=== PATIENT | female | born 1975 | race Caucasian/White ===

== ENCOUNTER 2020-04-06 05:42 | Inpatient (IN) | payer OTHER ==
[2020-04-06] MEDS ORDERED: Citric Acid/Sodium Citrate Solution 30 ML Cup PO ONE (05:48)
[2020-04-06] MEDS ORDERED: Sodium Chloride 0.9% 10 ML Syringe FLUSH PRN (05:48)
[2020-04-06] MEDS ORDERED: Sodium Chloride 0.9% 2.5 ML Syringe FLUSH PRN (05:48)
[2020-04-06] MEDS ORDERED: ceFAZolin 2 GM in Premix Bag 1 BAG IV ONE (05:48)
[2020-04-06] MEDS ORDERED: Sodium Chloride 0.9% 10 ML SDV IV PRN (05:48)
[2020-04-06] MEDS ORDERED: Oxytocin/0.9 % Sodium Chloride 30 UNIT/500 ML BAG IV SCH (06:00)
[2020-04-06] MEDS: Lactated Ringers 1,000 ML IV SCH ×2 (06:25→07:19)
--- NOTE | 2020-04-06 06:56 | PCM.PREANE ---
Preanesthetic Assessment - Anesthesia/Transfusion/Family Hx Anesthesia History: Prior Anesthesia Without Reaction Other Type of Anesthesia Reaction Comment: Reports gets a little anxious, no known problems in past Family History of Anesthesia Reaction: No Transfusion History: No Prior Transfusion(s) Intubation History: Unknown - Review of Systems General: No Symptoms Pulmonary: No Symptoms Cardiovascular: No Symptoms Gastrointestinal: No Symptoms Neurological: No Symptoms Other: Reports: None - Physical Assessment Height: 5 ft 5 in Weight: 116.573 kg ASA Class: 2 Mental Status: Alert & Oriented x3 Airway Class: Mallampati = 2 Dentition: Reports: Normal Dentition Thyro-Mental Finger Breadths: 3 Mouth Opening Finger Breadths: 3 ROM/Head Extension: Full Lungs: Clear to Auscultation, Normal Respiratory Effort Cardiovascular: Regular Rate, Regular Rhythm - Lab Values: Laboratory Last Values WBC 7.69 K/uL (4.0-11.0) 04/06/20 06:15 RBC 4.34 M/uL (4.30-5.90) 04/06/20 06:15 Hgb 11.9 g/dL (12.0-16.0) L 04/06/20 06:15 Hct 38.4 % (36.0-46.0) 04/06/20 06:15 MCV 88.5 fL (80.0-98.0) 04/06/20 06:15 MCH 27.4 pg (27.0-32.0) 04/06/20 06:15 MCHC 31.0 g/dL (31.0-37.0) 04/06/20 06:15 RDW Std Deviation 64.0 fl (28.0-62.0) H 04/06/20 06:15 RDW Coeff of Nando 20 % (11.0-15.0) H 04/06/20 06:15 Plt Count 262 K/uL (150-400) 04/06/20 06:15 MPV 10.10 fL (7.40-12.00) 04/06/20 06:15 Nucleated RBC % 0.0 /100WBC 04/06/20 06:15 Nucleated RBCs # 0 K/uL 04/06/20 06:15 - Allergies Allergies/Adverse Reactions: Allergies Allergy/AdvReac Type Severity Reaction Status Date / Time Sulfa (Sulfonamide Allergy Rash Verified 01/20/21 10:15 Antibiotics) sulfamethoxazole Allergy Rash Verified 04/01/20 10:15 [From Septra] trimethoprim [From Novra] Allergy Rash Verified 04/01/20 10:15 - Blood Blood Available: No - Anesthesia Plan Pre-Op Medication Ordered: None - Acknowledgements Anesthesia Type Planned: Spinal (GETA back-up plan) Pt an Appropriate Candidate for the Planned Anesthesia: Yes Alternatives and Risks of Anesthesia Discussed w Pt/Guardian: Yes Pt/Guardian Understands and Agrees with Anesthesia Plan: Yes PreAnesthesia Questionnaire HEENT History: Reports: Other (See Below) Other HEENT History: wears glasses/contacts Cardiovascular History: Reports: None Respiratory History: Reports: None Gastrointestinal History: Reports: GERD Other Gastrointestinal History: heartburn with Genitourinary History: Reports: None 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: Musculoskeletal History: Reports: Fracture Other Musculoskeletal History: fx arm as a child Neurological History: Reports: None Psychiatric History: Reports: Anxiety, Depression, Other (See Below) Other Psychiatric History: hx post depression Endocrine/Metabolic History: Reports: Obesity/BMI 30+ Hematologic History: Reports: None Immunologic History: Reports: None Oncologic (Cancer) History: Reports: None Dermatologic History: Reports: None - Past Surgical History Head Surgeries/Procedures: Reports: None HEENT Surgical History: Reports: None Cardiovascular Surgical History: Reports: None Respiratory Surgical History: Reports: None GI Surgical History: Reports: None Female Surgical History: Reports: Section (x3) Endocrine Surgical History: Reports: None Neurological Surgical History: Reports: None Musculoskeletal Surgical History: Reports: None Oncologic Surgical History: Reports: None Dermatological Surgical History: Reports: None - SUBSTANCE USE Tobacco Use Status *Q: Never Tobacco User - HOME MEDS Home Medications: Home Meds Cetirizine [ZyrTEC] 10 mg PO DAILY 08/19/14 [History] PNV95/Ferrous Fumarate/FA [ Multivitamins] 1 tab PO DAILY 08/19/14 [History] Ferrous Sulfate [Slow Fe] 1 tab PO DAILY 04/01/20 [History] Omeprazole 20 mg PO DAILY PRN 04/01/20 [History] - CURRENT (IN HOUSE) MEDS Current Meds: Current Medications Oxytocin/Sodium Chloride (Oxytocin 30 Unit/500 Ml-Ns) 30 unit in 500 mls @ 250 mls/hr IV TITRATE [facility] Lactated Ringer's (Ringers, Lactated) 1,000 mls @ 500 mls/hr IV BOLUS [facility] Last Admin: 04/06/20 06:25 Dose: 500 mls/hr Documented by: Sodium Chloride (Saline Flush) 10 ml FLUSH ASDIRECTED PRN PRN Reason: Keep Vein Open Sodium Chloride (Saline Flush) 2.5 ml FLUSH ASDIRECTED PRN PRN Reason: Keep Vein Open Sodium Chloride (Normal Saline) 10 ml IV ASDIRECTED PRN PRN Reason: IV Use Discontinued Medications Citric Acid/Sodium Citrate (Bicitra Solution) 30 ml PO ONETIME ONE Stop: 04/06/20 05:49 Cefazolin Sodium/Dextrose 2 gm (/ Premix) 50 mls @ 100 mls/hr IV ONETIME ONE Stop: 04/06/20 06:17
[2020-04-06] MEDS ORDERED: Morphine PF 10 MG/10 ML SDV ONE (07:14)
[2020-04-06] MEDS ORDERED: Phenylephrine 1% 10 MG/ML SDV ONE (07:20)
[2020-04-06] MEDS ORDERED: Oxytocin 10 Units/1 ML SDV ONE ×2 (07:20→07:29)
[2020-04-06] MEDS ORDERED: Ketorolac 30 MG/ML SDV ONE (07:26)
[2020-04-06] MEDS ORDERED: Ondansetron 4 MG/2 ML SDV ONE (07:26)
[2020-04-06] MEDS ORDERED: Octyl 2-Cyanoacrylate 1 Tube ONE (08:42)
--- NOTE | 2020-04-06 09:03 | PCM.OPNOTE ---
- General Post-Op/Procedure Note Date of Surgery/Procedure: 04/06/20 Operative Procedure(s): repeat low transverse Findings: Liveborn female 11/19 weight 3990 grams Pre Op Diagnosis: 39 weeks prior c-sections Post-Op Diagnosis: Same Anesthesia Technique: Spinal Primary Surgeon: Tessa Thomas Secondary Surgeon: Clare Ragsdale Anesthesia Provider: Evy Saavedra All Source Intelligence: Pippa Bartholomew Pathology: none Fluid Replacement, Intraop: 300 (2000 preop) EBL in mLs: 300 Complications: None Known Condition: Good
[2020-04-06] MEDS ORDERED: Ondansetron 4 MG/2 ML SDV IVPUSH PRN (09:06)
[2020-04-06] MEDS ORDERED: Tranexamic Acid 1,000 MG in Sodium Chloride 0.9% 100 ML IV PRN (09:06)
[2020-04-06] MEDS ORDERED: Misoprostol 200 MCG Tab RECTAL PRN (09:06)
[2020-04-06] MEDS ORDERED: Methylergonovine 0.2 MG/1 ML Amp IM PRN (09:06)
[2020-04-06] MEDS ORDERED: Lanolin 100% Cream 7 GM Tube TOP PRN (09:06)
[2020-04-06] MEDS ORDERED: Acetaminophen/oxyCODONE 325-5 MG Tab PO PRN (09:06)
[2020-04-06] MEDS ORDERED: Oxytocin 10 Units/1 ML SDV IM PRN (09:06)
[2020-04-06] MEDS ORDERED: Ibuprofen 800 MG Tab PO PRN (09:06)
[2020-04-06] MEDS ORDERED: Bisacodyl 10 MG Supp RECTAL PRN (09:06)
[2020-04-06] MEDS ORDERED: Lactated Ringers 1,000 ML IV SCH (09:15)
[2020-04-06] MEDS ORDERED: Oxytocin/Lactated Ringers 30 UNIT/500 ML BAG IV SCH (09:15)
[2020-04-06] MEDS ORDERED: Ketorolac 30 MG/ML SDV IVPUSH SCH ×2 (09:15→14:30)
[2020-04-06] MEDS ORDERED: Omeprazole 20 MG Cap.CR PO PRN (09:17)
--- NOTE | 2020-04-06 09:36 | PCM.POSTAN ---
POST ANESTHESIA ASSESSMENT - MENTAL STATUS Mental Status: Alert, Oriented - RESPIRATORY Respiratory Status: Respiratory Rate WNL, Airway Patent, O2 Saturation Stable - CARDIOVASCULAR CV Status: Pulse Rate WNL, Blood Pressure Stable - GASTROINTESTINAL GI Status: No Symptoms - PAIN Pain Score: 0 - POST OP HYDRATION Hydration Status: Adequate & Stable
--- NOTE | 2020-04-06 10:38 | OR ---
SURGEON: Tessa Thomas M.D. DATE OF PROCEDURE: 04/06/2020 PREOPERATIVE DIAGNOSES: 1. A 39-week intrauterine . 2. Multiple prior deliveries. 3. Active COVID disease. POSTOPERATIVE DIAGNOSES: 1. A 39-week intrauterine . 2. Multiple prior deliveries. PRIMARY SURGEON: Tessa Thomas M.D. ALUMINUM FABRICATION SUPERVISOR: Clare Ragsdale MD ANESTHESIA: Spinal. ESTIMATED BLOOD LOSS: 300 mL. FLUIDS: 300 mL intraoperative, 2000 mL preoperatively. FINDINGS: Live-born female, scores of 9 and 9, weighing 3990 g. Normal-appearing uterus, tubes, and ovaries. COMPLICATIONS: None known. DISPOSITION: Stable to Recovery. BRIEF HISTORY: This is a 44-year-old female. She presents for repeat delivery and declines a vaginal trial of labor. She overall has had uncomplicated care. She declined genetic screening, and on Monday prior to the surgery, she presented to the clinic for preoperative examination and OB visit. She felt achy, sore, fatigued, and general malaise. She thought she maybe in labor, she was not. COVID test was obtained for preoperative testing and was positive. She has been in quarantine since that time, but she presents now under appropriate COVID precautions for her with risks discussed including bleeding; infection; injury to bowel, bladder, blood vessels, ureters, or other organs; risk of thromboembolic event; and risk of anesthesia. Understanding all these risks, she does desire to proceed. DESCRIPTION OF PROCEDURE: With the patient in left tilt position, under adequate spinal analgesia, the abdomen was prepped with chlorhexidine and draped in usual fashion for abdominal surgery. SCDs were in place. Martínez catheter had been placed. Appropriate time- out was held. After documentation of adequate analgesia, the abdomen was appropriately draped, and the prior cicatrix was excised, and the incision was carried through the subcutaneous tissue to the fascia, which was scored transversely in the midline. The fascia was elevated from the underlying rectus muscle and using sharp and blunt dissection. The rectus muscles were in the midline. The peritoneum was elevated and incised. A finger was placed into the peritoneal cavity. There were no significant adhesions except for some filmy omental adhesions cephalad to the incision. The incision was extended cephalad and caudad using sharp and blunt dissection. The Ekvin O retractor was placed. The visceral peritoneum over the lower uterine segment was incised to develop an adequate bladder flap. A transverse curvilinear incision was made over the lower uterine segment, and a finger was used to enter the amniotic cavity. Clear fluid was noted. The incision was extended transversely using cephalad and caudad traction. The head was delivered via the uterine incision with fundal pressure. The 's body was delivered. Cord was wrapped around the arm. It was untangled, and the was bulb suctioned by nose and mouth. The was immediately crying and active, and after 1 minute, the cord was doubly clamped and cut. The infant was handed to the nurse in attendance of delivery. The infant was a liveborn female, scores of 9 and 9, weighing 3990 g. Cord blood was collected for cord ABGs as well as routine cord blood sampling. Pitocin was initiated after delivery of the to assist with delivery of the placenta as well as uterine contractions. The placenta was removed with manual assistance, and the uterus was cleaned with a dry laparotomy tape. The cervix was opened with ring forceps. The uterine incision was closed with a running locked suture of 0 Polysorb followed by an interrupted [id number] suture for hemostasis. Tubes and ovaries were inspected and were normal. Paracolic gutters were cleaned with a dry laparotomy tape. The uterine incision was again inspected and remained hemostatic. The Kevin O retractor was removed, and the bladder blade and Rich were utilized to perform final inspection of the incision, which was hemostatic. Therefore, the rectus muscle and peritoneum were loosely approximated in midline using a running mattress suture of 0 Polysorb. The posterior aspect of the fascia was inspected and was hemostatic. The fascial incision was closed with a running suture of 0 Polysorb. Subcutaneous tissue was irrigated. Any areas of bleeding that were noted were cauterized. The skin was closed with a running subcuticular suture of 3-0 Monocryl followed by Dermabond. Final sponge, needle, and instrument counts were reported as correct. There were no known complications. The patient was transferred to Recovery in good condition. LEX / ANIRUHD /[id number]
[2020-04-06] MEDS: diphenhydrAMINE 50 MG/ML SDV IVPUSH PRN ×2 (11:30→20:33)
[2020-04-06] MEDS: Acetaminophen/oxyCODONE 325-5 MG Tab PO PRN ×2 (18:22→23:17)
[2020-04-06] MEDS: Enoxaparin 40 MG/0.4 ML Syringe SUBCUT SCH (18:24)
[2020-04-06] MEDS: Docusate Sodium 100 MG Cap PO SCH (20:04)
[2020-04-07] MEDS: Acetaminophen/oxyCODONE 325-5 MG Tab PO PRN ×5 (04:02→20:30)
--- NOTE | 2020-04-07 06:52 | PCM.PNPP ---
- General Info Date of Service: 04/07/20 Functional Status: Reports: Pain Controlled, Tolerating Diet, Ambulating, Urinating - Review of Systems General: Reports: No Symptoms HEENT: Reports: No Symptoms Pulmonary: Reports: No Symptoms Cardiovascular: Reports: No Symptoms Gastrointestinal: Reports: No Symptoms Genitourinary: Reports: No Symptoms Musculoskeletal: Reports: No Symptoms Skin: Reports: No Symptoms Neurological: Reports: No Symptoms Psychiatric: Reports: No Symptoms - Patient Data Vital Signs - Most Recent: Last Vital Signs Temp 37.2 C 04/07/20 04:13 Pulse 95 04/07/20 04:13 Resp 18 04/07/20 04:13 BP 107/68 04/07/20 04:13 Pulse Ox 92 L 04/07/20 04:13 Weight - Most Recent: 117.934 kg I&O - Last 24 Hours: Intake & Output 04/06/20 04/06/20 04/07/20 14:59 22:59 06:59 Intake Total 300 5648 700 Output Total 1175 1325 1675 Balance -875 4323 -975 Lab Results - Last 24 Hours: Laboratory Results - last 24 hr 04/06/20 04/06/20 Range/Units 06:15 08:18 Cord ABG pH 7.485 H (7.18-7.38) Cord ABG Base Excess 0 H (-10--2) Cord VBG pH 7.389 (7.25-7.45) Cord VBG Base Excess -1 H (-10--2) Blood Type A POSITIVE Antibody Screen NEGATIVE Med Orders - Current: Current Medications Bisacodyl (Dulcolax) 10 mg RECTAL ONETIME PRN PRN Reason: Constipation Cetirizine HCl (Zyrtec) 10 mg PO DAILY [facility] Diphenhydramine HCl (Benadryl) 25 mg IVPUSH Q6H PRN PRN Reason: Itching or Nausea Last Admin: 04/06/20 20:33 Dose: 25 mg Documented by: Docusate Sodium (Colace) 100 mg PO BID [facility] Last Admin: 04/06/20 20:04 Dose: 100 mg Documented by: Emollient Ointment (Lansinoh Hpa) 0 gm TOP ASDIRECTED PRN PRN Reason: Sore Nipples Enoxaparin Sodium (Lovenox) 40 mg SUBCUT Q24H [facility] Last Admin: 04/06/20 18:24 Dose: 40 mg Documented by: Ferrous Sulfate (Ferrous Sulfate) 325 mg PO DAILY [facility] Lactated Ringer's (Ringers, Lactated) 1,000 mls @ 125 mls/hr IV ASDIRECTED GWEN Last Admin: 04/06/20 11:30 Dose: 125 mls/hr Documented by: Oxytocin/Lactated Ringer's (Pitocin In Lr 30 Units/500 Ml) 30 unit in 500 mls @ 999 mls/hr IV TITRATE [facility]; Protocol Tranexamic Acid 1,000 mg/ (Sodium Chloride) 110 mls @ 660 mls/hr IV ONETIME PRN PRN Reason: Bleeding Methylergonovine Maleate (Methergine) 0.2 mg IM ONETIME PRN PRN Reason: Excessive Vaginal Bleeding Misoprostol (Cytotec) 1,000 mcg RECTAL ONETIME PRN PRN Reason: excessive bleeding Omeprazole (Omeprazole) 20 mg PO DAILY PRN PRN Reason: Heartburn Ondansetron HCl (Zofran) 4 mg IVPUSH Q4H PRN PRN Reason: Nausea/Vomiting Oxycodone/Acetaminophen (Percocet 325-5 Mg) 1 tab PO Q4H PRN PRN Reason: Pain (moderate 4-6) Oxycodone/Acetaminophen (Percocet 325-5 Mg) 2 tab PO Q4H PRN PRN Reason: Pain (moderate 4-6) Last Admin: 04/07/20 04:02 Dose: 2 tab Documented by: Oxytocin (Pitocin) 10 unit IM ASDIRECTED PRN PRN Reason: Excessive Vaginal Bleeding Prenat Multivit/[place]/Iron/Folic Ac ( Mtr) 1 each PO DAILY [facility] Discontinued Medications Citric Acid/Sodium Citrate (Bicitra Solution) 30 ml PO ONETIME ONE Stop: 04/06/20 05:49 Last Admin: 04/06/20 07:34 Dose: Not Given Documented by: Oxytocin/Sodium Chloride (Oxytocin 30 Unit/500 Ml-Ns) 30 unit in 500 mls @ 250 mls/hr IV TITRATE [facility] Cefazolin Sodium/Dextrose 2 gm (/ Premix) 50 mls @ 100 mls/hr IV ONETIME ONE Stop: 04/06/20 06:17 Lactated Ringer's (Ringers, Lactated) 1,000 mls @ 500 mls/hr IV BOLUS [facility] Last Admin: 04/06/20 07:19 Dose: 999 mls/hr Documented by: Cefazolin Sodium/Dextrose (Ancef 2 Gm/50 Ml) Confirm Administered Dose 50 mls @ as directed .ROUTE .[facility] ONE Stop: 04/06/20 08:38 Ibuprofen (Motrin) 800 mg PO Q8H PRN PRN Reason: mild pain or fever Ibuprofen (Motrin) 800 mg PO Q8H PRN PRN Reason: mild pain or fever Ketorolac Tromethamine (Toradol) Confirm Administered Dose 30 mg .ROUTE .ST-MED ONE Stop: 04/06/20 07:27 Ketorolac Tromethamine (Toradol) 30 mg IVPUSH Q6H [facility] Stop: 04/07/20 09:16 Ketorolac Tromethamine (Toradol) 30 mg IVPUSH Q6H [facility] Stop: 04/07/20 08:31 Last Admin: 04/06/20 14:22 Dose: 30 mg Documented by: Morphine Sulfate (Duramorph Pf) Confirm Administered Dose 10 mg .ROUTE .ST-MED ONE Stop: 04/06/20 07:15 Octyl Cyanoacrylate (Dermabond Advance) Confirm Administered Dose 1 applic .ROUTE .[facility] ONE Stop: 04/06/20 08:43 Ondansetron HCl (Zofran) Confirm Administered Dose 4 mg .ROUTE .ST-MED ONE Stop: 04/06/20 07:27 Oxytocin (Pitocin) Confirm Administered Dose 30 unit .ROUTE .[facility]-MED ONE Stop: 04/06/20 07:21 Oxytocin (Pitocin) Confirm Administered Dose 10 unit .ROUTE .ST-MED ONE Stop: 04/06/20 07:30 Phenylephrine HCl (Carlos-Synephrine) Confirm Administered Dose 10 mg .ROUTE .ST- MED ONE Stop: 04/06/20 07:21 Sodium Chloride (Saline Flush) 10 ml FLUSH ASDIRECTED PRN PRN Reason: Keep Vein Open Sodium Chloride (Saline Flush) 2.5 ml FLUSH ASDIRECTED PRN PRN Reason: Keep Vein Open Sodium Chloride (Normal Saline) 10 ml IV ASDIRECTED PRN PRN Reason: IV Use - Interaction Infant Disposition, : [place] in Room with Family Infant Interaction: Holding Feeding: Breastfed Infant; Nursed Well Support Person: - Recovery Exam Fundal Tone: Firm Fundal Level: 2 Fingerbreadths Below Umbilicus Fundal Placement: Midline Lochia Amount: Scant Lochia Color: Rubra/Red Perineum Description: Intact, Minimal Bruising/Swelling Episiotomy/Laceration: None Bladder Status: Indwelling Catheter in Place Urinary Elimination: Indwelling Catheter - Exam General: Alert, Oriented HEENT: Pupils Equal Neck: Supple Lungs: Clear to Auscultation, Normal Respiratory Effort Cardiovascular: Regular Rate, Regular Rhythm GI/Abdominal Exam: Normal Bowel Sounds, Soft, Non-Tender Extremities: Normal Inspection, No Pedal Edema Skin: Warm Psy/Mental Status: Alert, Normal Affect, Normal Mood - Problem List & Annotations (1) COVID-19 affecting puerperium SNOMED Code(s): 513169221, 976145317 Code(s): O98.53 - OTHER VIRAL DISEASES COMPLICATING THE PUERPERIUM; U07.1 - COVID-19 Status: Acute Current Visit: Yes (2) Previous delivery, delivered SNOMED Code(s): 197630878, 619104090 Code(s): O34.21 - MATERNAL CARE FOR SCAR FROM PREVIOUS * DO NOT USE * Status: Acute Current Visit: No - Problem List Review Problem List Initiated/Reviewed/Updated: Yes - My Orders Last 24 Hours: My Active Orders 04/06/20 06:15 RPR (SYPHILIS SERO) W/ RFLX [REF] Routine 04/06/20 09:06 Patient Status [ADT] Routine Ambulate [RC] PER UNIT ROUTINE Antiembolic Devices [RC] PER UNIT ROUTINE Communication Order [RC] PER UNIT ROUTINE Communication Order [RC] PER UNIT ROUTINE Communication Order [RC] Per Unit Routine Intake and Output [RC] Q8H May Shower [RC] ASDIRECTED RT Incentive Spirometry [RC] Q2HWA Vital Signs [RC] PER UNIT ROUTINE Acetaminophen/oxyCODONE [Percocet 325-5 MG] 1 tab PO Q4H PRN Acetaminophen/oxyCODONE [Percocet 325-5 MG] 2 tab PO Q4H PRN Lanolin [Lansinoh HPA] See Dose Instructions TOP ASDIRECTED PRN Methylergonovine [Methergine] 0.2 mg IM ONETIME PRN Ondansetron [Zofran] 4 mg IVPUSH Q4H PRN Oxytocin [Pitocin] 10 unit IM ASDIRECTED PRN Tranexamic Acid [Cyklokapron] 1,000 mg Sodium Chloride 0.9% [Normal Saline] 100 ml IV ONETIME bisacodyL [Dulcolax] 10 mg RECTAL ONETIME PRN diphenhydrAMINE [Benadryl] 25 mg IVPUSH Q6H PRN miSOPROStoL [Cytotec] 1,000 mcg RECTAL ONETIME PRN Abdominal Binder [OM.PC] Urgent Assess Lochia [WOMSER] Per Unit Routine Assess Uterine Involution [WOMSER] Per Unit Routine Breast Pump [WOMSER] Per Unit Routine Peripheral IV Discontinue [OM.PC] Routine Sequential Compression Device [OM.PC] Per Unit Routine Resuscitation Status Routine 04/06/20 09:07 Notify Provider Intake and Out [RC] ASDIRECTED Notify Provider Vital Signs [RC] ASDIRECTED 04/06/20 09:15 Lactated Ringers [Ringers, Lactated] 1,000 ml IV ASDIRECTED Oxytocin/Lactated Ringers [Pitocin in LR 30 Units/500 ML] 30 unit in 500 ml IV TITRATE 04/06/20 09:17 Omeprazole 20 mg PO DAILY PRN 04/06/20 Lunch Regular Diet [DIET] 04/06/20 Dinner Guest Tray [DIET] 04/06/20 17:30 Enoxaparin [Lovenox] 40 mg SUBCUT Q24H 04/06/20 21:00 Docusate Sodium [Colace] 100 mg PO BID 04/07/20 05:11 HEMOGLOBIN/HEMATOCRIT,HH [HEME] Routine 04/07/20 09:00 Cetirizine [ZyrTEC] 10 mg PO DAILY Ferrous Sulfate 325 mg PO DAILY Vit/FA/Fe Fumarate/Se [ MTR] 1 each PO DAILY - Assessment Assessment:: POD#1 after repeat low transverse , symptomatic COVID, normal oxygen saturations. Stable - Plan Plan:: Continue postop care, continue Lovenox due to and COVID. Anticipate discharge tomorrow.
--- NOTE | 2020-04-07 07:47 | PCM48HPAN ---
Post Anesthesia Note - EVALUATION WITHIN 48HRS OF ANESTHETIC Vital Signs in Normal Range: Yes Patient Participated in Evaluation: Yes Respiratory Function Stable: Yes Airway Patent: Yes Cardiovascular Function Stable: Yes Hydration Status Stable: Yes Pain Control Satisfactory: Yes Nausea and Vomiting Control Satisfactory: Yes Mental Status Recovered: Yes Vital Signs: Last Vital Signs Temp 37.2 C 04/07/20 04:13 Pulse 95 04/07/20 04:13 Resp 18 04/07/20 04:13 BP 107/68 04/07/20 04:13 Pulse Ox 92 L 04/07/20 04:13
[2020-04-07] MEDS: Docusate Sodium 100 MG Cap PO SCH ×2 (08:16→20:30)
[2020-04-07] MEDS: Ferrous Sulfate 325 MG Tab PO SCH (08:16)
[2020-04-07] MEDS: Prenatal Multivitamin and Multimineral with Iron Tab PO SCH (08:16)
[2020-04-07] MEDS ORDERED: Cetirizine 10 MG Tab PO SCH (09:00)
[2020-04-07] MEDS ORDERED: Ibuprofen 800 MG Tab PO PRN (15:00)
[2020-04-07] MEDS: Enoxaparin 40 MG/0.4 ML Syringe SUBCUT SCH (18:04)
[2020-04-07] MEDS: Simethicone 80 MG Tab.Chew PO PRN (20:30)
[2020-04-08] MEDS: Simethicone 80 MG Tab.Chew PO PRN ×2 (00:51→08:58)
[2020-04-08] MEDS: Acetaminophen/oxyCODONE 325-5 MG Tab PO PRN ×3 (00:52→08:57)
[2020-04-08 05:09] VITALS: BP 152/67; PULSE 92
--- NOTE | 2020-04-08 08:36 | PCM.PNPP ---
- General Info Date of Service: 04/08/20 Functional Status: Reports: Tolerating Diet, Urinating. Denies: Pain Controlled (can't have NSAID due to Lovenox. she is using Percocet regularly), Ambulating - Review of Systems General: Reports: No Symptoms HEENT: Reports: No Symptoms Pulmonary: Reports: No Symptoms Cardiovascular: Reports: No Symptoms Gastrointestinal: Reports: No Symptoms Genitourinary: Reports: No Symptoms Musculoskeletal: Reports: No Symptoms Skin: Reports: No Symptoms Neurological: Reports: No Symptoms Psychiatric: Reports: No Symptoms - Patient Data Vital Signs - Most Recent: Last Vital Signs Temp 36.4 C 04/07/20 19:30 Pulse 92 04/08/20 05:08 Resp 15 04/08/20 05:08 BP 152/67 H 04/08/20 05:08 Pulse Ox 98 04/08/20 05:08 Weight - Most Recent: 117.934 kg Med Orders - Current: Current Medications Bisacodyl (Dulcolax) 10 mg RECTAL ONETIME PRN PRN Reason: Constipation Cetirizine HCl (Zyrtec) 10 mg PO DAILY [facility] Last Admin: 04/07/20 09:44 Dose: 10 mg Documented by: Diphenhydramine HCl (Benadryl) 25 mg IVPUSH Q6H PRN PRN Reason: Itching or Nausea Last Admin: 04/06/20 20:33 Dose: 25 mg Documented by: Docusate Sodium (Colace) 100 mg PO BID [facility] Last Admin: 04/07/20 20:30 Dose: 100 mg Documented by: Emollient Ointment (Lansinoh Hpa) 0 gm TOP ASDIRECTED PRN PRN Reason: Sore Nipples Enoxaparin Sodium (Lovenox) 40 mg SUBCUT Q24H [facility] Last Admin: 04/07/20 18:04 Dose: 40 mg Documented by: Ferrous Sulfate (Ferrous Sulfate) 325 mg PO DAILY [facility] Last Admin: 04/07/20 08:16 Dose: 325 mg Documented by: Lactated Ringer's (Ringers, Lactated) 1,000 mls @ 125 mls/hr IV ASDIRECTED [facility] Last Admin: 04/06/20 11:30 Dose: 125 mls/hr Documented by: Oxytocin/Lactated Ringer's (Pitocin In Lr 30 Units/500 Ml) 30 unit in 500 mls @ 999 mls/hr IV TITRATE [facility]; Protocol Tranexamic Acid 1,000 mg/ (Sodium Chloride) 110 mls @ 660 mls/hr IV ONETIME PRN PRN Reason: Bleeding Methylergonovine Maleate (Methergine) 0.2 mg IM ONETIME PRN PRN Reason: Excessive Vaginal Bleeding Misoprostol (Cytotec) 1,000 mcg RECTAL ONETIME PRN PRN Reason: excessive bleeding Omeprazole (Omeprazole) 20 mg PO DAILY PRN PRN Reason: Heartburn Ondansetron HCl (Zofran) 4 mg IVPUSH Q4H PRN PRN Reason: Nausea/Vomiting Oxycodone/Acetaminophen (Percocet 325-5 Mg) 1 tab PO Q4H PRN PRN Reason: Pain (moderate 4-6) Oxycodone/Acetaminophen (Percocet 325-5 Mg) 2 tab PO Q4H PRN PRN Reason: Pain (moderate 4-6) Last Admin: 04/08/20 04:51 Dose: 2 tab Documented by: Oxytocin (Pitocin) 10 unit IM ASDIRECTED PRN PRN Reason: Excessive Vaginal Bleeding Prenat Multivit/[place]/Iron/Folic Ac ( Mtr) 1 each PO DAILY [facility] Last Admin: 04/07/20 08:16 Dose: 1 each Documented by: Simethicone (Simethicone) 80 mg PO Q4H PRN PRN Reason: Gas Last Admin: 04/08/20 00:51 Dose: 80 mg Documented by: Discontinued Medications Citric Acid/Sodium Citrate (Bicitra Solution) 30 ml PO ONETIME ONE Stop: 04/06/20 05:49 Last Admin: 04/06/20 07:34 Dose: Not Given Documented by: Oxytocin/Sodium Chloride (Oxytocin 30 Unit/500 Ml-Ns) 30 unit in 500 mls @ 250 mls/hr IV TITRATE [facility] Cefazolin Sodium/Dextrose 2 gm (/ Premix) 50 mls @ 100 mls/hr IV ONETIME ONE Stop: 04/06/20 06:17 Lactated Ringer's (Ringers, Lactated) 1,000 mls @ 500 mls/hr IV BOLUS [facility] Last Admin: 04/06/20 07:19 Dose: 999 mls/hr Documented by: Cefazolin Sodium/Dextrose (Ancef 2 Gm/50 Ml) Confirm Administered Dose 50 mls @ as directed .ROUTE .STK-MED ONE Stop: 04/06/20 08:38 Ibuprofen (Motrin) 800 mg PO Q8H PRN PRN Reason: mild pain or fever Ibuprofen (Motrin) 800 mg PO Q8H PRN PRN Reason: mild pain or fever Ketorolac Tromethamine (Toradol) Confirm Administered Dose 30 mg .ROUTE .STK-MED ONE Stop: 04/06/20 07:27 Ketorolac Tromethamine (Toradol) 30 mg IVPUSH Q6H [facility] Stop: 04/07/20 09:16 Ketorolac Tromethamine (Toradol) 30 mg IVPUSH Q6H [facility] Stop: 04/07/20 08:31 Last Admin: 04/06/20 14:22 Dose: 30 mg Documented by: Morphine Sulfate (Duramorph Pf) Confirm Administered Dose 10 mg .ROUTE .ST-MED ONE Stop: 04/06/20 07:15 Octyl Cyanoacrylate (Dermabond Advance) Confirm Administered Dose 1 applic .ROUTE .ST-MED ONE Stop: 04/06/20 08:43 Ondansetron HCl (Zofran) Confirm Administered Dose 4 mg .ROUTE .STK-MED ONE Stop: 04/06/20 07:27 Oxytocin (Pitocin) Confirm Administered Dose 30 unit .ROUTE .STK-MED ONE Stop: 04/06/20 07:21 Oxytocin (Pitocin) Confirm Administered Dose 10 unit .ROUTE .STK-MED ONE Stop: 04/06/20 07:30 Phenylephrine HCl (Carlos-Synephrine) Confirm Administered Dose 10 mg .ROUTE .ST- MED ONE Stop: 04/06/20 07:21 Sodium Chloride (Saline Flush) 10 ml FLUSH ASDIRECTED PRN PRN Reason: Keep Vein Open Sodium Chloride (Saline Flush) 2.5 ml FLUSH ASDIRECTED PRN PRN Reason: Keep Vein Open Sodium Chloride (Normal Saline) 10 ml IV ASDIRECTED PRN PRN Reason: IV Use - Interaction Infant Disposition, : [place] in Room with Family Infant Interaction: Holding Infant Feeding: Breastfed Infant; Nursed Well Support Person: - Recovery Exam Fundal Tone: Firm Fundal Level: 2 Fingerbreadths Below Umbilicus Fundal Placement: Midline Lochia Amount: Scant Lochia Color: Rubra/Red Perineum Description: Intact, Minimal Bruising/Swelling Episiotomy/Laceration: None Bladder Status: Voiding Urinary Elimination: Voided - Exam General: Alert, Oriented Neck: Supple Lungs: Clear to Auscultation, Normal Respiratory Effort Cardiovascular: Regular Rate, Regular Rhythm GI/Abdominal Exam: Normal Bowel Sounds, Soft, Non-Tender Extremities: Normal Inspection, Normal Range of Motion, Non-Tender. No: No Pedal Edema (trace) Skin: Warm, Dry, Intact Wound/Incisions: Healing Well Neurological: No New Focal Deficit Psy/Mental Status: Alert, Normal Affect, Normal Mood - Problem List & Annotations (1) COVID-19 affecting puerperium SNOMED Code(s): 302173641, 167483877 Code(s): O98.53 - OTHER VIRAL DISEASES COMPLICATING THE PUERPERIUM; U07.1 - COVID-19 Status: Acute Current Visit: Yes (2) Previous delivery, delivered SNOMED Code(s): 066998355, 315092627 Code(s): O34.21 - MATERNAL CARE FOR SCAR FROM PREVIOUS * DO NOT USE * Status: Acute Current Visit: No - Problem List Review Problem List Initiated/Reviewed/Updated: Yes - My Orders Last 24 Hours: My Active Orders 04/07/20 09:00 Cetirizine [ZyrTEC] 10 mg PO DAILY Ferrous Sulfate 325 mg PO DAILY Vit/FA/Fe Fumarate/Se [ MTR] 1 each PO DAILY - Assessment Assessment:: POD#2 after repeat low transverse , symptomatic COVID, normal oxygen saturations. Last 2 BP readings elevated, may be due to pain, but will monitor, and hold discharge at least until this evening Has not yet been up out of been much, no shower yet. - Plan Plan:: Discussed with nurse and patient, need to get shower today, ambulating in room, work on pain control, but getting out of bed may be helpful. Consider discharge this evening if pain control is improved and BP stable.
[2020-04-08] MEDS: Docusate Sodium 100 MG Cap PO SCH (08:58)
[2020-04-08] MEDS: Ferrous Sulfate 325 MG Tab PO SCH (08:58)
[2020-04-08] MEDS: Prenatal Multivitamin and Multimineral with Iron Tab PO SCH (08:58)
== END 2020-04-08 18:45 | disposition home or self-care (01) | DRG 786 ==
LOC: MW.OB 05:42
PROVIDERS: ADMIT Obstetrics & Gynecology; ATTEND Obstetrics & Gynecology
PROC: 10D00Z1 Extraction of Products of Conception, Low, Open Approach (ICD-10-PCS; principal; 2020-04-06)
DX: O34.211 Maternal care for low transverse scar from previous cesarean delivery (principal); U07.1 COVID-19; O98.52 Other viral diseases complicating childbirth; Z3A.39 39 weeks gestation of pregnancy; Z37.0 Single live birth
CPT/HCPCS: 01961; 36415; 59025; 82803; 85014; 85018; 85027; 86592; 86850; 86900; 86901; A9270-GY; J0690; J1200; J1650; J1885; J2270; J2370; J2405; J2590; J7120

== ENCOUNTER 2020-10-09 15:36 | Emergency (ER) | payer OTHER ==
[2020-10-09] MEDS ORDERED: Sodium Chloride 0.9% 2.5 ML Syringe FLUSH PRN (16:25)
[2020-10-09] MEDS ORDERED: Sodium Chloride 0.9% 1,000 ML IV ONE (16:25)
[2020-10-09] MEDS ORDERED: Sodium Chloride 0.9% 10 ML Syringe FLUSH PRN (16:25)
[2020-10-09] MEDS ORDERED: Ondansetron 4 MG/2 ML SDV IVPUSH ONE (16:25)
[2020-10-09 17:10] LABS: BLOOD UREA NITROGEN,BUN 13 mg/dL (7.0-18.0); CARBON DIOXIDE,CO2 25.8 mmol/L (21.0-32.0); CHLORIDE,CL 102 mmol/L (98-107); GLUCOSE RANDOM 106 mg/dL (74-106); LIPASE 783 U/L (73-393); POTASSIUM,K 3.8 mmol/L (3.5-5.1); SODIUM,NA 137 mmol/L (136-145)
--- NOTE | 2020-10-09 17:49 | US ---
INDICATION: Right upper quadrant pain, leukocytosis TECHNIQUE: Ultrasound abdomen limited. Sonographic images of the right upper quadrant were obtained using corado-scale and color Doppler images. COMPARISON: December 06, 2011 FINDINGS: Liver: The liver measures 21.2 cm in length. There is increased echogenicity throughout the liver. No masses. No intrahepatic biliary dilatation. Gallbladder: Multiple mobile gallstones. Sonographic Link`s sign is negative. Normal wall thickness. No pericholecystic fluid. Common bile duct: 4 mm. Pancreas: Normal. Right kidney: 11.4 cm. Normal echotexture and cortex. No masses, stones, or hydronephrosis. Vasculature: Proximal abdominal aorta and IVC are normal. IMPRESSION: Cholelithiasis without evidence for cholecystitis. Hepatomegaly with hepatic steatosis. Dictated by Wendy Constantino MD @ 10/09/2020 5:48:[address] Wendy Constantino @ Oct 09 2020 5:48PM
[2020-10-09] MEDS ORDERED: Iopamidol 755 MG/ML 500 ML Multipack Bottle IVPUSH STA (18:35)
[2020-10-09 19:08] VITALS: BP 119/68; PULSE 65
--- NOTE | 2020-10-09 19:13 | CT ---
HISTORY: Right-sided pain. TECHNIQUE: Intravenous contrast enhanced CT of the abdomen and pelvis. 100 mL of Isovue-370 intravenous contrast administered. COMPARISON: Ultrasound 10/09/2020. FINDINGS: There is diffuse fatty infiltration of the liver with sparing adjacent to gallbladder fossa. No biliary ductal dilatation. Gallbladder does not appear excessively distended. The spleen and adrenal glands are normal. No focal pancreatic abnormality. Symmetric nephrograms. No renal mass or hydronephrosis. No obstructive calculus. Urinary bladder is mildly distended. - No small bowel obstruction. No appendicitis. No acute diverticulitis. No fluid collection or free air. - No abdominal aortic aneurysm. - A small area of subpleural opacity within the left lower lobe posteriorly likely relates to atelectasis. - No acute fractures. IMPRESSION: 1. No specific identified cause of the patient`s right-sided pain. 2. Fatty infiltration of the liver. 3. No appendicitis, diverticulitis or bowel obstruction. Please note that all CT scans at this facility use dose modulation, iterative reconstruction, and/or weight-based dosing when appropriate to reduce radiation dose to as low as reasonably achievable. Dictated by Eros Payne MD @ 10/09/2020 7:12:[address] Eros Payne @ Oct 09 2020 7:12PM
--- NOTE | 2020-10-09 19:33 | EDM.PDOC ---
ED HPI GENERAL MEDICAL PROBLEM - General Chief Complaint: Abdominal Pain Stated Complaint: LABS/STOMACH PAIN Time Seen by Provider: 10/09/20 15:36 Source of Information: Reports: Patient History Limitations: Reports: No Limitations - History of Present Illness INITIAL COMMENTS - FREE TEXT/NARRATIVE: HISTORY AND PHYSICAL: History of present illness: Patient is a 44-year-old female who resents emergency room today with concern of upper abdominal pain and nausea x2 to 3 days. Patient states that she came here because she was sent from the clinic and states that she would not have otherwise come here today. Patient states that 3 days ago she began having upper abdominal pain and states that it was more severe 3 days ago than it is today but states that she has residual nausea and a "blah "feeling. Patient states she is also had a decrease in appetite and has not wanted to eat or drink a whole lot. Patient states that she is currently breast-feeding and is 6 months and has a history of tubal ligation a few months ago. Patient states that she went to the clinic today and they did some lab work and told her she needed to come to the emergency room as her white blood cell count was elevated and her liver functions were elevated and they were concerned about her gallbladder. Patient denies any other health history or any other symptoms or concerns. Patient denies fever, chills, chest pain, shortness of breath, or cough. Denies headache, neck stiff ness, change in vision, syncope, or near syncope. Denies vomiting, diarrhea, constipation, or dysuria. Has not noted any blood in urine or stool. Review of systems: As per history of present illness and below otherwise all systems reviewed and negative. Past medical history: As per history of present illness and as reviewed below otherwise noncontributory. Surgical history: As per history of present illness and as reviewed below otherwise noncontributory. Social history: See social history for further information Family history: As per history of present illness and as reviewed below otherwise noncontributory. Physical exam: General: Patient is alert, oriented, and in no acute distress. Patient laying comfortably on exam table. Vitals stable and reviewed by me. HEENT: Atraumatic, normocephalic, pupils equal and reactive bilaterally, negative for conjunctival pallor or scleral icterus, mucous membranes moist, TMs normal bilaterally, throat clear, neck supple, nontender, trachea midline. No drooling or trismus noted. No meningeal signs. No hot potato voice noted. Lungs: Clear to auscultation, breath sounds equal bilaterally, chest nontender. Heart: S1S2, regular rate and rhythm without overt murmur Abdomen: Soft, nondistended, mild upper abdominal tenderness without guarding, negative rebound, negative Link. Negative for masses or hepatosplenomegaly. Negative for costovertebral tenderness. Pelvis: Stable nontender. Genitourinary: Deferred. Rectal: Deferred. Skin: Intact, warm, dry. No lesions or rashes noted. Extremities: Atraumatic, negative for cords or calf pain. Neurovascular unremarkable. Neuro: Awake, alert, oriented. Cranial nerves II through XII unremarkable. Cerebellum unremarkable. Motor and sensory unremarkable throughout. Exam nonfocal. Notes: Patient is a 44-year-old female who presents to the ED today with concern of 3- day history of abdominal pain and nausea and sent to the emergency room from her primary care provider for concern of leukocytosis and transaminitis in the setting of upper abdominal pain. Upon arrival to the ED, patient is vitally stable and well-appearing on exam. Patient does have some mild right upper and left upper abdominal tenderness without guarding and negative Link sign. Patient does state that her abdominal pain is improved over the past 3 days but she continues to have some nausea and decreased appetite. At this time, I do not have access to patient's lab work done in the clinic so we will repeat lab work with anticipation to obtain a right upper quadrant ultrasound and abdominal pelvic CT scan. Mild derangements of CBC are unremarkable with a within normal limits white blood cell count at 10.74. CMP does show an AST elevation of 165, ALT elevation of 835, alk phos elevation at 187. Bilirubin is within normal limits. Lipase is mildly elevated at 783. hCG is negative. Urinalysis is clear. Abdominal pelvic CT scan shows no specific identified cause for patient's abdominal pain. Fatty infiltration of the liver. No appendicitis, diverticulitis, or bowel obstruction. Right upper quadrant ultrasound shows cholelithiasis without evidence for cholecystitis. Hepatomegaly with hepatic steatosis. Common bile duct within normal limits. I did call and speak to the general surgeon on-call, Dr. Levin, and thoroughly discussed patient's case. He feels that patient's lab work likely reflects that she has passed a stone that was obstructed for a period of time causing some mild pancreatitis/inflammation in the transient elevation of her liver function testing. Given that bilirubin is within normal limits, he feels that if patient's pain is well controlled, she is stable for discharge to home with close follow-up with general surgery and her primary care provider for repeat lab work trending her LFTs to normal. Upon reevaluation of patient, she remains vitally stable and comfortable throughout stay in ED. Admission for observation was offered to patient but she declines at this time. Strict return precautions thoroughly discussed with patient. All signs and symptoms that were prompt return to the ED thoroughly discussed with patient. Discussed importance for follow-up with a primary care provider as well as general surgery. Voices understanding and is agreeable to plan of care. Denies any further questions or concerns at this time. Diagnostics: CBC, CMP, UA, lipase, abdominal pelvic CT with contrast, right upper quadrant ultrasound Therapeutics: Zofran, NS Prescription: Zofran Impression: Symptomatic cholelithiasis Pancreatitis, mild Plan: 1. Take medication as prescribed. You can alternate ibuprofen and Tylenol as directed for pain and discomfort. 2. Stick to a low-fat diet and advance your diet as discussed. 3. Follow-up with your primary care provider and general surgeon as discussed. Return to the ED as needed and as discussed. Definitive disposition and diagnosis as appropriate pending reevaluation and review of above. Abdominal Pain Score (Numeric/FACES): 2 - Related Data Allergies Allergy/AdvReac Type Severity Reaction Status Date / Time Sulfa (Sulfonamide Allergy Rash Verified 10/09/20 16:54 Antibiotics) sulfamethoxazole Allergy Rash Verified 10/09/20 16:54 [From ] trimethoprim [From ] Allergy Rash Verified 10/09/20 16:54 Home Meds: Home Meds Cetirizine [ZyrTEC] 10 mg PO DAILY 08/19/14 [History] PNV95/Ferrous Fumarate/FA [ Multivitamins] 1 tab PO DAILY 08/19/14 [History] Ferrous Sulfate [Slow Fe] 1 tab PO DAILY 04/01/20 [History] Omeprazole 20 mg PO DAILY PRN 04/01/20 [History] Acetaminophen/oxyCODONE [Percocet 325-5 MG] 1 tab PO Q4H PRN #20 tablet 04/07/20 [Rx] Enoxaparin [Lovenox] 40 mg SUBCUT Q24H #42 syringe 04/07/20 [Rx] Past Medical History HEENT History: Reports: Other (See Below) Other HEENT History: wears glasses/contacts Cardiovascular History: Reports: None Respiratory History: Reports: None Gastrointestinal History: Reports: GERD Other Gastrointestinal History: heartburn with Genitourinary History: Reports: None 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: Musculoskeletal History: Reports: Fracture Other Musculoskeletal History: fx arm as a child Neurological History: Reports: None Psychiatric History: Reports: Anxiety, Depression, Other (See Below) Other Psychiatric History: hx post depression Endocrine/Metabolic History: Reports: Obesity/BMI 30+ Hematologic History: Reports: None Immunologic History: Reports: None Oncologic (Cancer) History: Reports: None Dermatologic History: Reports: None - Infectious Disease History Infectious Disease History: Reports: None - Past Surgical History Head Surgeries/Procedures: Reports: None HEENT Surgical History: Reports: None Cardiovascular Surgical History: Reports: None Respiratory Surgical History: Reports: None GI Surgical History: Reports: None Female Surgical History: Reports: Section Endocrine Surgical History: Reports: None Neurological Surgical History: Reports: None Musculoskeletal Surgical History: Reports: None Oncologic Surgical History: Reports: None Dermatological Surgical History: Reports: None Social & Family History - Family History Family Medical History: No Pertinent Family History - Caffeine Use Caffeine Use: Reports: Soda - Recreational Drug Use Recreational Drug Use: No ED ROS GENERAL - Review of Systems Review Of Systems: Comprehensive ROS is negative, except as noted in HPI. ED EXAM, GENERAL - Physical Exam Exam: See Below (see dictation) Course - Vital Signs Last Recorded V/S: Last Vital Signs Temp 98.2 F 10/09/20 15:56 Pulse 65 10/09/20 19:02 Resp 17 10/09/20 19:02 BP 119/68 10/09/20 19:02 Pulse Ox 99 10/09/20 19:02 - Orders/Labs/Meds Orders: Active Orders 24 hr Category Date Time Status Saline Lock Insert [OM.PC] Stat Oth 10/09/20 16:25 Ordered Labs: Laboratory Tests 10/09/20 10/09/20 10/09/20 Range/Units 16:33 16:33 16:33 WBC 10.74 (4.0-11.0) K/uL RBC 4.69 (4.30-5.90) M/uL Hgb 14.0 (12.0-16.0) g/dL Hct 41.1 (36.0-46.0) % MCV 87.6 (80.0-98.0) fL MCH 29.9 (27.0-32.0) pg MCHC 34.1 (31.0-37.0) g/dL RDW Std Deviation 43.5 (28.0-62.0) fl RDW Coeff of [place] 14 (11.0-15.0) % Plt Count 309 (150-400) K/uL MPV 9.20 (7.40-12.00) fL Neut % (Auto) 65.3 (48.0-80.0) % Lymph % (Auto) 23.6 (16.0-40.0) % [place] % (Auto) 9.0 (0.0-15.0) % Eos % (Auto) 1.9 (0.0-7.0) % Baso % (Auto) 0.2 (0.0-1.5) % Neut # (Auto) 7.0 H (1.4-5.7) K/uL Lymph # (Auto) 2.5 H (0.6-2.4) K/uL [place] # (Auto) 1.0 H (0.0-0.8) K/uL Eos # (Auto) 0.2 (0.0-0.7) K/uL Baso # (Auto) 0.0 (0.0-0.1) K/uL Nucleated RBC % 0.0 /100WBC Nucleated RBCs # 0 K/uL Sodium 137 (136-145) mmol/L Potassium 3.8 (3.5-5.1) mmol/L Chloride 102 (98-107) mmol/L Carbon Dioxide 25.8 (21.0-32.0) mmol/L BUN 13 (7.0-18.0) mg/dL Creatinine 0.9 (0.6-1.0) mg/dL Est Cr Clr Drug Dosing 76.23 mL/min Estimated GFR (MDRD) > 60.0 ml/min Glucose 106 (74-106) mg/dL Calcium 8.7 (8.5-10.1) mg/dL Total Bilirubin 0.3 (0.2-1.0) mg/dL AST 165 H (15-37) IU/L ALT 835 H (14-63) IU/L Alkaline Phosphatase 187 H (46-116) U/L Total Protein 7.1 (6.4-8.2) g/dL Albumin 3.4 (3.4-5.0) g/dL Globulin 3.7 (2.6-4.0) g/dL Albumin/Globulin Ratio 0.9 (0.9-1.6) Lipase 783 H (73-393) U/L HCG, Qual NEGATIVE (NEG) Urine Color Urine Appearance Urine pH (5.0-8.0) Ur Specific [place] (1.001-1.035) Urine Protein (NEGATIVE) mg/dL Urine Glucose (UA) (NEGATIVE) mg/dL Urine Ketones (NEGATIVE) mg/dL Urine Occult Blood (NEGATIVE) Urine Nitrite (NEGATIVE) Urine Bilirubin (NEGATIVE) Urine Urobilinogen (<2.0) EU/dL Ur Leukocyte Esterase (NEGATIVE) 10/09/20 Range/Units 18:30 WBC (4.0-11.0) K/uL RBC (4.30-5.90) M/uL Hgb (12.0-16.0) g/dL Hct (36.0-46.0) % MCV (80.0-98.0) fL MCH (27.0-32.0) pg MCHC (31.0-37.0) g/dL RDW Std Deviation (28.0-62.0) fl RDW Coeff of [place] (11.0-15.0) % Plt Count (150-400) K/uL MPV (7.40-12.00) fL Neut % (Auto) (48.0-80.0) % Lymph % (Auto) (16.0-40.0) % [place] % (Auto) (0.0-15.0) % Eos % (Auto) (0.0-7.0) % Baso % (Auto) (0.0-1.5) % Neut # (Auto) (1.4-5.7) K/uL Lymph # (Auto) (0.6-2.4) K/uL [place] # (Auto) (0.0-0.8) K/uL Eos # (Auto) (0.0-0.7) K/uL Baso # (Auto) (0.0-0.1) K/uL Nucleated RBC % /100WBC Nucleated RBCs # K/uL Sodium (136-145) mmol/L Potassium (3.5-5.1) mmol/L Chloride (98-107) mmol/L Carbon Dioxide (21.0-32.0) mmol/L BUN (7.0-18.0) mg/dL Creatinine (0.6-1.0) mg/dL Est Cr Clr Drug Dosing mL/min Estimated GFR (MDRD) ml/min Glucose (74-106) mg/dL Calcium (8.5-10.1) mg/dL Total Bilirubin (0.2-1.0) mg/dL AST (15-37) IU/L ALT (14-63) IU/L Alkaline Phosphatase (46-116) U/L Total Protein (6.4-8.2) g/dL Albumin (3.4-5.0) g/dL Globulin (2.6-4.0) g/dL Albumin/Globulin Ratio (0.9-1.6) Lipase (73-393) U/L HCG, Qual (NEG) Urine Color YELLOW Urine Appearance CLEAR Urine pH 6.5 (5.0-8.0) Ur Specific [place] <= 1.005 (1.001-1.035) Urine Protein NEGATIVE (NEGATIVE) mg/dL Urine Glucose (UA) NEGATIVE (NEGATIVE) mg/dL Urine Ketones NEGATIVE (NEGATIVE) mg/dL Urine Occult Blood NEGATIVE (NEGATIVE) Urine Nitrite NEGATIVE (NEGATIVE) Urine Bilirubin NEGATIVE (NEGATIVE) Urine Urobilinogen 0.2 (<2.0) EU/dL Ur Leukocyte Esterase NEGATIVE (NEGATIVE) Meds: Medications Discontinued Medications Generic Name Dose Route Start Last Admin Trade Name Freq PRN Reason Stop Dose Admin Sodium Chloride 1,000 mls @ 999 mls/hr 10/09/20 16:25 10/09/20 16:45 Normal Saline IV 10/09/20 17:25 999 mls/hr BOLUS ONE Administration Iopamidol 100 ml 10/09/20 18:35 10/09/20 18:48 Iopamidol 755 Mg/Ml 500 Ml Multipack Bottle IVPUSH 07/30/21 18:36 100 ml ONETIME STA Administration Ondansetron HCl 4 mg 10/09/20 16:25 10/09/20 16:45 Ondansetron 4 Mg/2 Ml Sdv IVPUSH 10/09/20 16:26 4 mg ONETIME ONE Administration Sodium Chloride 10 ml 10/09/20 16:25 10/09/20 16:53 Sodium Chloride 0.9% 10 Ml Syringe FLUSH 10 ml ASDIRECTED PRN Administration Keep Vein Open Sodium Chloride 2.5 ml 10/09/20 16:25 10/09/20 16:52 Sodium Chloride 0.9% 2.5 Ml Syringe FLUSH 2.5 ml ASDIRECTED PRN Administration Keep Vein Open Departure - Departure Time of Disposition: 19:31 Disposition: Home, Self-Care 01 Clinical Impression: Cholelithiasis Qualifiers: Cholelithiasis location: gallbladder Cholecystitis presence: without cholecystitis Biliary obstruction: without biliary obstruction Qualified Code(s): K80.20 - Calculus of gallbladder without cholecystitis without obstruction Pancreatitis Qualifiers: Chronicity: acute Pancreatitis type: unspecified pancreatitis type Acute pancreatitis complication: unspecified Qualified Code(s): K85.90 - Acute pancreatitis without necrosis or infection, unspecified - Discharge Information Instructions: Cholelithiasis Referrals: Eleanor Miguel DO [Primary Care Provider] - Forms: ED Department Discharge Additional Instructions: The following information is given to patients seen in the emergency department who are being discharged to home. This information is to outline your options for follow-up care. We provide all patients seen in our emergency department with a follow-up referral. The need for follow-up, as well as the timing and circumstances, are variable depending upon the specifics of your emergency department visit. If you don't have a primary care physician on staff, we will provide you with a referral. We always advise you to contact your personal physician following an emergency department visit to inform them of the circumstance of the visit and for follow-up with them and/or the need for any referrals to a consulting specialist. The emergency department will also refer you to a specialist when appropriate. This referral assures that you have the opportunity for follow-up care with a specialist. All of these measure are taken in an effort to provide you with optimal care, which includes your follow-up. Under all circumstances we always encourage you to contact your private physician who remains a resource for coordinating your care. When calling for follow-up care, please make the office aware that this follow-up is from your recent emergency room visit. If for any reason you are refused follow-up, please contact the [facility] Emergency Department at and asked to speak to the emergency department charge nurse. [facility] Primary Care [address] [place] [address] [facility] [address] [place] [address] [id number] [facility] - General Surgery Professional Building [address], [address] [place] [address] 1. Take medication as prescribed. You can alternate ibuprofen and Tylenol as directed for pain and discomfort. 2. Stick to a low-fat diet and advance your diet as discussed. 3. Follow-up with your primary care provider and general surgeon as discussed. Return to the ED as needed and as discussed. Sepsis Event Note (ED) - Evaluation Sepsis Screening Result: No Definite Risk - Focused Exam Vital Signs: Vital Signs Temp Pulse Resp BP Pulse Ox 10/09/20 19:02 65 17 119/68 99 10/09/20 18:40 74 16 124/72 99 10/09/20 17:32 86 18 138/76 98 10/09/20 16:40 90 17 142/80 H 99 10/09/20 15:56 98.2 F 93 18 142/84 H 97 10/09/20 15:40 97.1 F 94 18 142/84 H 95 - My Orders Last 24 Hours: My Active Orders 10/09/20 16:25 Saline Lock Insert [OM.PC] Stat - Assessment/Plan Last 24 Hours: My Active Orders 10/09/20 16:25 Saline Lock Insert [OM.PC] Stat
== END 2020-10-09 19:40 | disposition home or self-care (01) ==
LOC: MW.ED 15:36
DX: K80.20 Calculus of gallbladder without cholecystitis without obstruction (principal); K85.90 Acute pancreatitis without necrosis or infection, unspecified; K21.9 Gastro-esophageal reflux disease without esophagitis; E66.9 Obesity, unspecified; Z68.38 Body mass index [BMI] 38.0-38.9, adult; Z79.899 Other long term (current) drug therapy; Z88.2 Allergy status to sulfonamides; Z88.1 Allergy status to other antibiotic agents
CPT/HCPCS: 36415; 74177; 76705; 80053; 81003; 83690; 84703; 85025; 96374; 99284; J2405; J7030; Q9967

== ENCOUNTER 2020-12-08 06:44 | Day surgery (SDC) | payer MEDICAID, OTHER ==
[~2020-12-08 06:44] MED LIST: Lactated Ringers 1,000 ML IV SCH; Sodium Chloride 0.9% 10 ML SDV IV PRN; Sodium Chloride 0.9% 10 ML Syringe FLUSH PRN; Sodium Chloride 0.9% 2.5 ML Syringe FLUSH PRN; ceFAZolin 2 GM in Premix Bag 1 BAG IV ONE
[2020-12-08] MEDS ORDERED: Dexamethasone 4 MG/ML 5 ML MDV ONE (07:17)
[2020-12-08] MEDS ORDERED: Octyl 2-Cyanoacrylate 1 Tube ONE (07:17)
[2020-12-08] MEDS ORDERED: Rocuronium Bromide 50 MG/5 ML Syringe ONE (07:17)
[2020-12-08] MEDS ORDERED: Lidocaine 2% 5 ML SDV ONE (07:17)
[2020-12-08] MEDS ORDERED: Bupivacaine 0.5% 30 ML SDV ONE (07:17)
[2020-12-08] MEDS ORDERED: Sugammadex Sodium 200 MG/2 ML VIAL ONE (07:17)
[2020-12-08] MEDS ORDERED: Ondansetron 4 MG/2 ML SDV IVPUSH PRN (07:18)
[2020-12-08] MEDS ORDERED: Albuterol 0.083% 2.5 MG/3 ML Neb Soln NEB PRN (07:18)
[2020-12-08] MEDS ORDERED: Morphine 2 MG/ML SYRINGE IVPUSH PRN (07:18)
[2020-12-08] MEDS ORDERED: Midazolam 1 MG/ML 2 ML SDV ONE (07:18)
[2020-12-08] MEDS ORDERED: HYDROmorphone 1 MG/ML Syringe IVPUSH PRN (07:18)
[2020-12-08] MEDS ORDERED: fentaNYL 100 MCG/2 ML SDV IVPUSH PRN (07:18)
[2020-12-08] MEDS ORDERED: Naloxone 0.4 MG/ML SDV IVPUSH PRN (07:18)
[2020-12-08] MEDS ORDERED: Propofol 200 MG/20 ML SDV ONE (07:18)
[2020-12-08] MEDS ORDERED: Metoclopramide 10 MG/2 ML SDV IVPUSH PRN (07:18)
--- NOTE | 2020-12-08 07:25 | PCM.PREANE ---
Preanesthetic Assessment - Procedure Proposed Procedure: Lap Monse - Anesthesia/Transfusion/Family Hx Anesthesia History: Prior Anesthesia Without Reaction Other Type of Anesthesia Reaction Comment: Reports gets a little anxious, no known problems in past Family History of Anesthesia Reaction: No Transfusion History: No Prior Transfusion(s) Intubation History: Unknown - Review of Systems General: No Symptoms Pulmonary: No Symptoms Cardiovascular: No Symptoms Gastrointestinal: No Symptoms Neurological: No Symptoms Other: Reports: Depression, Anxiety - Physical Assessment NPO Status Date: 12/07/20 NPO Status Time: 22:30 Height: 5 ft 6 in Weight: 104.326 kg (obesity) ASA Class: 2 Mental Status: Alert & Oriented x3 Airway Class: Mallampati = 2 Dentition: Reports: Normal Dentition Thyro-Mental Finger Breadths: 3 Mouth Opening Finger Breadths: 3 ROM/Head Extension: Full Lungs: Clear to Auscultation, Normal Respiratory Effort Cardiovascular: Regular Rate, Regular Rhythm - Allergies Allergies/Adverse Reactions: Allergies Allergy/AdvReac Type Severity Reaction Status Date / Time Sulfa (Sulfonamide Allergy Rash Verified 12/02/20 10:49 Antibiotics) sulfamethoxazole Allergy Rash Verified 12/02/20 10:49 [From Septra] trimethoprim [From Novra] Allergy Rash Verified 12/02/20 10:49 - Acknowledgements Anesthesia Type Planned: General Anesthesia Pt an Appropriate Candidate for the Planned Anesthesia: Yes Alternatives and Risks of Anesthesia Discussed w Pt/Guardian: Yes Pt/Guardian Understands and Agrees with Anesthesia Plan: Yes PreAnesthesia Questionnaire HEENT History: Reports: Other (See Below) Other HEENT History: wears glasses/contacts Cardiovascular History: Reports: None Respiratory History: Reports: None Gastrointestinal History: Reports: Other (See Below) Other Gastrointestinal History: intermittent RUQ pain Genitourinary History: Reports: None 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: Musculoskeletal History: Reports: Fracture Other Musculoskeletal History: fx arm as a child Neurological History: Reports: None Psychiatric History: Reports: Anxiety, Depression, Other (See Below) Other Psychiatric History: hx post depression Endocrine/Metabolic History: Reports: Obesity/BMI 30+ Hematologic History: Reports: None Immunologic History: Reports: None Oncologic (Cancer) History: Reports: None Dermatologic History: Reports: None - Infectious Disease History Infectious Disease History: Reports: None - Past Surgical History Head Surgeries/Procedures: Reports: None HEENT Surgical History: Reports: None Cardiovascular Surgical History: Reports: None Respiratory Surgical History: Reports: None GI Surgical History: Reports: None Female Surgical History: Reports: Section, Tubal Ligation Endocrine Surgical History: Reports: None Neurological Surgical History: Reports: None Musculoskeletal Surgical History: Reports: None Oncologic Surgical History: Reports: None Dermatological Surgical History: Reports: None - SUBSTANCE USE Tobacco Use Status *Q: Never Tobacco User - HOME MEDS Home Medications: Home Meds Ferrous Sulfate 1 tab PO DAILY 12/02/20 [History] Lactobacillus Acidophilus [Probiotic] 1 tab PO DAILY 12/02/20 [History] Multivitamin 1 tab PO DAILY 12/02/20 [History] - CURRENT (IN HOUSE) MEDS Current Meds: Current Medications Lactated Ringer's (Ringers, Lactated) 1,000 mls @ 125 mls/hr IV ASDIRECTED GWEN Sodium Chloride (Sodium Chloride 0.9% 2.5 Ml Syringe) 2.5 ml FLUSH ASDIRECTED PRN PRN Reason: Keep Vein Open Sodium Chloride (Sodium Chloride 0.9% 10 Ml Sdv) 10 ml IV ASDIRECTED PRN PRN Reason: IV Use Sodium Chloride (Sodium Chloride 0.9% 10 Ml Syringe) 10 ml FLUSH ASDIRECTED PRN PRN Reason: Keep Vein Open Discontinued Medications Cefazolin Sodium/Dextrose 2 gm (/ Premix) 50 mls @ 100 mls/hr IV ONETIME ONE Stop: 12/07/20 13:05
[2020-12-08] MEDS ORDERED: HYDROmorphone 2 MG/ML Syringe ONE (08:38)
[2020-12-08] MEDS ORDERED: Ketorolac 30 MG/ML SDV ONE (09:10)
--- NOTE | 2020-12-08 09:46 | PCM.POSTAN ---
POST ANESTHESIA ASSESSMENT - MENTAL STATUS Mental Status: Somnolent - VITAL SIGNS Vital Signs: Last Vital Signs Temp 97.0 F 12/08/20 06:40 Pulse 82 12/08/20 06:40 Resp 16 12/08/20 06:40 BP 117/68 12/08/20 06:40 Pulse Ox 97 12/08/20 06:40 - RESPIRATORY Respiratory Status: Respiratory Rate WNL, Airway Patent, O2 Saturation Stable - CARDIOVASCULAR CV Status: Pulse Rate WNL, Blood Pressure Stable - GASTROINTESTINAL GI Status: No Symptoms - PAIN Free Text/Narrative:: Resting comfortably - POST OP HYDRATION Hydration Status: Adequate & Stable
--- NOTE | 2020-12-08 09:50 | PCM.OPNOTE ---
- General Post-Op/Procedure Note Date of Surgery/Procedure: 12/08/20 Operative Procedure(s): Laparoscopic cholecystectomy Findings: Mildly distended gallbladder. Fatty liver Pre Op Diagnosis: Cholelithiasis, history of pancreatitis Post-Op Diagnosis: same Anesthesia Technique: General ET Tube Primary Surgeon: Aubree Pineda Fluid Replacement, Intraop: 1,100 Output, Urine Amount: 50 EBL in mLs: 5 Condition: Good
[2020-12-08] MEDS ORDERED: Meperidine PF 25 MG/ML Syringe IVPUSH ONE (09:58)
--- NOTE | 2020-12-08 10:00 | PCM48HPAN ---
Post Anesthesia Note - EVALUATION WITHIN 48HRS OF ANESTHETIC Vital Signs in Normal Range: Yes Patient Participated in Evaluation: Yes Respiratory Function Stable: Yes Airway Patent: Yes Cardiovascular Function Stable: Yes Hydration Status Stable: Yes Pain Control Satisfactory: Yes Nausea and Vomiting Control Satisfactory: Yes Mental Status Recovered: Yes Vital Signs: Last Vital Signs Temp 97.7 F 12/08/20 09:39 Pulse 77 12/08/20 09:54 Resp 10 L 12/08/20 09:54 BP 131/65 12/08/20 09:54 Pulse Ox 96 12/08/20 09:54 - COMMENTS/OBSERVATIONS Free Text/Narrative:: Pt doing well post-op. VSS. No apparent anesthetic complications. Dr. Onofre Russell
[2020-12-08] MEDS ORDERED: Acetaminophen/oxyCODONE 325-5 MG Tab PO ONE (11:36)
[2020-12-08] MEDS ORDERED: Acetaminophen/oxyCODONE 325-5 MG Tab ONE (11:39)
--- NOTE | 2020-12-08 12:16 | OR ---
SURGEON: AUBREE PINEDA MD DATE OF PROCEDURE: 12/08/2020 PREOPERATIVE DIAGNOSIS: History of choledocholithiasis. POSTOPERATIVE DIAGNOSIS: History of choledocholithiasis. PROCEDURE PERFORMED: Laparoscopic cholecystectomy. PRIMARY SURGEON: Aubree Pineda MD ANESTHESIA: General endotracheal anesthesia. FLUIDS: 1100 mL crystalloid. ESTIMATED BLOOD LOSS: 5 mL. URINE OUTPUT: 50 mL. FINDINGS: Fatty liver, mildly distended gallbladder. COMPLICATIONS: None. INDICATIONS: The patient is a 45-year-old female who presented to the emergency room several months ago with right upper quadrant pain as well as an elevated lipase. Ultrasound revealed cholelithiasis. The patient's lipase improved. The patient was thought to possibly have passed a stone in the common bile duct. All of her repeat laboratories have been normal. She has had no further right upper quadrant pain. The decision was made to proceed with a laparoscopic possible open cholecystectomy to prevent issues in the future. The patient and I discussed the procedure, expected perioperative course, and risks. She verbalized understanding and wishes to proceed. PROCEDURE IN DETAIL: The patient was brought to the operating room and placed on the OR table in supine position. A time-out was completed verifying the patient's name, age, date of , allergies, and procedure to be performed. General endotracheal anesthesia was induced. The left arm was tucked to the patient's side and a Martínez catheter placed. The abdomen was prepped and draped in usual standard fashion. I anesthetized the supraumbilical fold with 0.5% Marcaine plain. A 15 blade was used to make an incision along the supraumbilical fold. Cautery was used to dissect down to the level of subcutaneous fat. I then bluntly dissected down to the fascia using S retractors. The fascia was grasped with Kochers and elevated. It was then sharply incised. Entry into the abdomen was palpated digitally. Stay sutures were placed on either side using 0 Vicryl sutures. A 12 mm Josue trocar was inserted in the abdomen and it was insufflated. I inserted a 5 mm 30 degree scope and inspected the area underneath my initial trocar placement. No damage to surrounding structures was noted. The patient was placed into reverse Trendelenburg position and airplaned slightly to the left. 5 mm trocars were placed in the following locations under direct visualization; one in the epigastric area, one in the right flank, and one 2 fingerbreadths below the right subcostal margin in the midclavicular line. The dome of the gallbladder was grasped and elevated. There were some small omental adhesions along the infundibulum. These were taken down using suction. I then began my dissection along the proximal one-third of the gallbladder. Using a combination of hook cautery and blunt dissection, I was able to clear away the cystic duct and cystic artery as well as the proximal one-third of the cystic plate. I identified the node of Calot. Indocyanine green was given at the beginning of the case. This was used to identify both the cystic duct and artery and photographs were taken. I then doubly clipped and ligated the cystic duct and artery. I used electrocautery to take down the remainder of the attachments of the gallbladder to the cystic plate. Once the gallbladder was free of these attachments, it was placed in an EndoCatch bag and removed through the supraumbilical port site. I then inspected my operative field. It appeared to be hemostatic, and there was no evidence of bile leakage. I irrigated the right upper quadrant and suctioned this out. The 5 mm trocars were then removed under direct visualization and the abdomen allowed to desufflate. The 12 mm trocar was removed as well and I closed the fascia at the supraumbilical port site with interrupted 0 Vicryl sutures. The subcutaneous fat layer was closed with interrupted 3-0 Vicryl suture. The skin was closed with a running 4-0 Monocryl stitch. The 5 mm trocar sites were closed with interrupted 4-0 Monocryl sutures. Dermabond and sterile dressings were applied. All counts were complete and correct at the end of the case. The patient was extubated and taken to PACU in stable condition. RAMONA OLEARY /[id number]
[2020-12-08 12:52] VITALS: BP 123/61; PULSE 79
== END 2020-12-08 12:20 | disposition home or self-care (01) ==
LOC: MW.SDS 06:44
PROVIDERS: ATTEND Surgery
DX: K80.10 Calculus of gallbladder with chronic cholecystitis without obstruction (principal); E66.9 Obesity, unspecified; Z88.2 Allergy status to sulfonamides; Z98.890 Other specified postprocedural states; Z88.8 Allergy status to other drugs, medicaments and biological substances; Z79.899 Other long term (current) drug therapy
CPT/HCPCS: 47562; 81025; 88304; A9270; J0131; J0690; J1100; J1170; J1885; J2175; J2250; J2704; J3490; J7030; J7120; 00790